=== PATIENT | female | born 1935 | race Caucasian/White ===

== ENCOUNTER 2017-11-12 22:10 | Inpatient (IN) | payer MEDICARE ==
[~2017-11-12] VITALS: Ht 157.5 cm; Wt 42.6 kg
--- NOTE | ~2017-11-12 | PN ---
PATIENT:SENDY PORRAS MEDICAL RECORD: [id number] LOCATION:MILLIE English ADMISSION DATE: 11/12/17 PROGRESS NOTE DATE OF SERVICE: 11/16/2017 SUBJECTIVE: No new complaint is noted. OBJECTIVE: The patient has been very pleasant. She has been exhibiting an unstable heart rate with episodes of significant tachycardia when she attempts to walk. Routine cardiac medications have not been resumed to this point. On exam, the patient's mood is pleasant. Affect is bland. Speech is circumstantial. Content of thought focuses on somatic concerns. Sensorium shows no change. ASSESSMENT: No change in diagnosis. PLAN: 1. Continue current medication. 2. Consult primary care or cardiology regarding unstable heart rate. TRANSINT:[id number] Voice Confirmation ID: [id number] DOCUMENT ID: [id number] EZE HERNANDEZ III, MD at 0837 CC: [id number] DICTATION DATE: 11/16/17 1025 PACKERHEAD MACHINE OPERATOR: 11/16/17 1058 ADM IN [place] [id number] [place] [id number]
--- NOTE | ~2017-11-12 | PN ---
PATIENT:SENDY PORRAS MEDICAL RECORD: [id number] LOCATION:MILLIE English ADMISSION DATE: 11/12/17 PROGRESS NOTE DATE OF SERVICE: 11/15/2017 SUBJECTIVE: The patient asks how she came to the hospital. OBJECTIVE: The patient has cleared somewhat. She is aware that she is in a hospital, but not exactly which one. Staff notes that she is exhibiting some paranoid ideation and that she is quite talkative. On exam, mood is slightly anxious. Affect is shallow. Speech is garrulous. Thought content shows nonspecific paranoid ideation. Sensorium shows essentially no change. She is oriented to person and the fact that she is in a hospital, but has global memory impairment, otherwise. ASSESSMENT: No change in diagnosis. PLAN: 1. Maintain current medication. 2. Continue supportive therapy. TRANSINT:[id number] Voice Confirmation ID: [id number] DOCUMENT ID: [id number] EZE HERNANDEZ III, MD at 0748 CC: [id number] DICTATION DATE: 11/15/17 1145 STUDIO DESIGNER: 11/15/17 1315 ADM IN [facility] [address] [place] [address]
--- NOTE | ~2017-11-12 | PN ---
PATIENT:SENDY PORRAS MEDICAL RECORD: [id number] LOCATION:MILLIE English ADMISSION DATE: 11/12/17 PROGRESS NOTE DATE OF SERVICE: 11/18/2017 SUBJECTIVE: The patient's case was discussed with staff. She has no new complaint. OBJECTIVE: The patient is in good behavioral control with limited insight about her condition. She does tolerate her medicines well. Eye contact is fair. ASSESSMENT: No change in diagnoses. PLAN: Brief supportive and educational interventions were made. I anticipate the patient can be transitioned out of the hospital soon if this level of improvement is maintained. TRANSINT:[id number] Voice Confirmation ID: [id number] DOCUMENT ID: [id number] DENISE MCNAMARA MD at 1034 CC: [id number] DICTATION DATE: 11/18/17 1420 DRUG ROOM OPERATOR: 11/18/17 2219 ADM IN [facility] [address] [place] [id number]
--- NOTE | ~2017-11-12 | PN ---
PATIENT:SENDY PORRAS MEDICAL RECORD: [id number] LOCATION:MILLIE English ADMISSION DATE: 11/12/17 PROGRESS NOTE DATE OF SERVICE: 11/21/2017 SUBJECTIVE: No new complaint. OBJECTIVE: The patient has been doing well. She is much more alert, especially in the mornings. She does get drowsy in the afternoons. No further evidence of psychosis or agitation. [facility] will need to review her case prior to placement. The family is hoping to have her placed somewhere in [facility]. On exam, mood euthymic. Affect bland. Speech is fairly fluent. Content of thought is negative for overt psychosis. Sensorium unchanged. ASSESSMENT: No change in diagnosis. PLAN: 1. Continue current medication. 2. Continue supportive therapy. TRANSINT:[id number] Voice Confirmation ID: [id number] DOCUMENT ID: [id number] EZE HERNANDEZ III, MD at 2046 CC: [id number] DICTATION DATE: 11/21/17 1119 GUEST SERVICES ASSOCIATE: 11/21/17 1232 ADM IN [place] [id number] [place] [id number]
--- NOTE | ~2017-11-12 | CN ---
PATIENT NAME:SENDY PORRAS MEDICAL RECORD: [id number] : 39 LOCATION:[id number] ADMIT DATE: 11/12/17 ACCOUNT: [id number] CONSULTING PHYSICIAN: AMARI DUQUE MD REFERRING PHYSICIAN: EZE HERNANDEZ III, MD DATE OF CONSULTATION: 11/13/2017 CARDIOLOGY CONSULT DIAGNOSES: 1. Bradycardia. 2. Confusion. HISTORY: Mrs. Porras is admitted to [facility] with confusion. This has been going on for quite some time. She has been bradycardic with heart rates in 30-40. She does have a history of atrial fibrillation, for which she is on sotalol. She is as well on digoxin and metoprolol. Her EKG is with sinus bradycardia. PHYSICAL EXAMINATION: GENERAL APPEARANCE: Well-nourished, well-developed, appears stated age. Level of distress, comfortable. PSYCHIATRIC: Mental status, alert, normal affect. Orientation, oriented to time, place and person. EYES: Lids and conjunctiva, noninjected. No discharge, no pallor. ENT: Lips, teeth, gums, normal dentition. Oropharynx, no cyanosis, no pallor. NECK: Carotid arteries, bilateral normal upstroke, no bruits, no thrills. JUGULAR VEINS: No jugular venous pressure or distention. CERVICAL LYMPH NODES: Nontender, nonenlarged. THYROID: Not enlarged. Nontender. No nodules. LUNGS: Respiratory effort, unlabored. CHEST: Normal curvature. No thoracic deformity. No chest wall tenderness. Percussion, resonant. Auscultation, clear. No wheezes, no rales, no rhonchi. CARDIOVASCULAR: Precordial exam, nondisplaced. No heaves or pericardial thrills. Rate and rhythm, regular. Heart sounds, normal S1, normal S2. No S3, no gallop, no rub. Systolic murmur, not heard. Diastolic murmur, not heard. EXTREMITIES: No cyanosis, no edema. Peripheral pulses, full and equal in all extremities, except as noted. No bruits appreciated. ABDOMEN: Soft, nondistended. Normal aorta. No bruit. Nontender. No masses. Liver, nontender, no hepatomegaly. Spleen, nontender, no splenomegaly. MUSCULOSKELETAL: No joint tenderness. No joint swelling. No erythema. NEUROLOGICAL: Normal gait, normal strength, normal tone. SKIN: Warm and dry. OVERALL IMPRESSION: Bradycardia secondary to medication. She is on sotalol, metoprolol, digoxin. We will hold all of her AV blocking medications at this time. Bradycardia will resolve. At this time, no other cardiac workup or treatment is necessary. TRANSINT:[id number] Voice Confirmation ID: [id number] DOCUMENT ID: [id number] CONSULT REPORT [id number] SENDY PORRAS JEFFREY MD at 1230 CC: [id number] DICTATION DATE: 11/13/17 1253 AUDIOPROSTHOLOGIST: 11/13/17 1305 ADM IN [facility] [address] [place] [id number]
--- NOTE | ~2017-11-12 | PN ---
PATIENT:SENDY PORRAS MEDICAL RECORD: [id number] LOCATION:MILLIE English ADMISSION DATE: 11/12/17 PROGRESS NOTE DATE OF SERVICE: 11/14/2017 SUBJECTIVE: The patient expresses concern about medication. OBJECTIVE: The patient was seen in consultation by cardiology yesterday following the order to have her transferred to the medical floor. web consultant was of the opinion that the patient's bradycardia and compromised cardiovascular status were due to medication reaction and that in fact the patient should stabilize here on this unit. Consequently, the request for discharge was canceled and the patient remains an inpatient on [facility]. On exam today, the patient's mood remains anxious. Affect is brittle. Speech tends to be somewhat tangential. Content of thought is focused primarily on her somatic complaints. On sensorium testing, the patient is oriented to person and the fact that she is in the hospital, not oriented as to time. She shows global memory impairment. ASSESSMENT: Alzheimer dementia. PLAN: 1. We will continue to treat only with p.r.n. lorazepam for agitation. 2. Continue workup by primary care. 3. Continue supportive therapy. TRANSINT:[id number] Voice Confirmation ID: [id number] DOCUMENT ID: [id number] EZE HERNANDEZ III, MD at 0934 CC: [id number] DICTATION DATE: 11/14/17 1134 RESEARCH NUTRITIONIST: 11/14/17 1151 ADM IN [facility] [address] [place] [address]
--- NOTE | ~2017-11-12 | PN ---
PATIENT:SENDY PORRAS MEDICAL RECORD: [id number] LOCATION:MILLIE English ADMISSION DATE: 11/12/17 PROGRESS NOTE DATE OF SERVICE: 11/19/2017 SUBJECTIVE: The patient's case was discussed with staff. She has no new complaints. OBJECTIVE: The patient is in good behavioral control with limited insight about her condition. She tolerates her medicines well. ASSESSMENT: No change in diagnoses. PLAN: Current medicines and therapies have been reviewed. I anticipate she can be transitioned out of the hospital soon if this level of improvement is maintained. TRANSINT:[id number] Voice Confirmation ID: [id number] DOCUMENT ID: [id number] DENISE MCNAMARA MD at 1354 CC: [id number] DICTATION DATE: 11/19/17 1109 FILER FINISH: 11/19/17 1343 ADM IN [facility] [address] [place] [address]
--- NOTE | ~2017-11-12 | DS ---
PATIENT:SENDY PORRAS :39 MEDICAL RECORD: [id number] DISCHARGE SUMMARY ADMISSION DATE: 11/12/17 DISCHARGE DATE: DATE OF ADMISSION: 11/12/2017 DATE OF DISCHARGE: 11/13/2017 HISTORY: The patient was just admitted on transfer from [facility]. The patient had previous history of confusion dating back at least 3 years. She had been living alone. She had gone to a neighbor's house and was exhibiting extreme confusion and agitation and was subsequently brought to the Emergency Department at [facility]. Following transfer here, it was clear that she was exhibiting a compromised cardiovascular status. Oxygen saturation was 83%, pulse rate was 39. The patient did not show significant improvement and will be transferred to the medical floor. COURSE IN THE HOSPITAL: See above. FINAL DIAGNOSES: AXIS I: Alzheimer's dementia most likely. AXIS II: No diagnosis. AXIS III: Cardiac arrhythmias, hypertension, hypercholesterolemia. AXIS IV: Severe. AXIS V: 20. PLAN: The patient will be transferred to the medical floor as soon as possible. TRANSINT:[id number] Voice Confirmation ID: [id number] DOCUMENT ID: [id number] EZE HERNANDEZ III, MD at 1021 CC: [id number] DICTATION DATE: 11/13/17 1024 WILLOWER: 11/13/17 1353 ADM IN [place] [id number] [place] [address]
--- NOTE | ~2017-11-12 | PN ---
PATIENT:SENDY PORRAS MEDICAL RECORD: [id number] LOCATION:MILLIE English ADMISSION DATE: 11/12/17 PROGRESS NOTE DATE OF SERVICE: 11/20/2017 SUBJECTIVE: No new complaint offered. OBJECTIVE: The patient has shown tremendous improvement. Her cardiac status has stabilized. She is now in normal sinus rhythm. She is eating well and much more alert. On exam, mood is euthymic. Affect is very pleasant. Speech is somewhat terse, but otherwise fluent. Content of thought is negative for overt psychosis. Sensorium shows no change. ASSESSMENT: No change in diagnosis. PLAN: 1. Continue current medication. 2. Continue supportive therapy. TRANSINT:[id number] Voice Confirmation ID: [id number] DOCUMENT ID: [id number] EZE HERNANDEZ III, MD at 1026 CC: [id number] DICTATION DATE: 11/20/17921 BOX TOE CUTTER: 11/20/17 1124 ADM IN [place] [id number] [place] [address]
--- NOTE | ~2017-11-12 | PSY ---
PATIENT NAME:SENDY PORRAS MEDICAL RECORD: [id number] : 39 LOCATION:MILLIE Sheehan ADMISSION DATE: 11/12/17 ACCOUNT: [id number] PSYCHIATRIC EVALUATION DATE OF EVALUATION: 11/13/17 IDENTIFYING DATA: A 81-year-old white female accepted on transfer from [facility] Emergency Department. HISTORY OF PRESENT ILLNESS: This patient was taken to [facility] after she had become quite confused. She had gone to a neighbor's home and would not leave. She became increasingly agitated. Granddaughter reported on admission here that the patient had been becoming increasingly confused over the last 3 years. The patient lives alone. After admission here, it was clear that the patient was having significant cardiac issues. Oxygen saturation was at 83%, pulse rate was 39. The patient has continued to exhibit bradycardia since admission. In view of her compromise cardiac status, she will be transferred to the medical floor. PAST MEDICAL HISTORY: Significant for cardiac arrhythmias. The patient is currently taking Betapace 80 mg b.i.d. as well as Lopressor 50 mg b.i.d. for hypertension, Lasix 20 mg daily, and K-Dur 20 mEq daily. She also takes Pravachol 40 mg h.s. ALLERGIES: Listed as CODEINE, LESCOL, LIPITOR. FAMILY HISTORY: Noncontributory. SOCIAL HISTORY: The patient lives alone. She has family involved in her care. No substance abuse issues noted. MENTAL STATUS: The patient cannot cooperate at all for mental status exam. She is very poorly responsive. Sensorium cannot be tested. ASSESSMENT: AXIS I: Probable Alzheimer dementia by history. AXIS II: No diagnosis. AXIS III: cardiac arrhythmias, hypertension, and hypercholesterolemia. AXIS IV: Severe. AXIS V: 20. PLAN: The patient will be transferred to the medical floor as soon as possible. TRANSINT:[id number] Voice Confirmation ID: [id number] DOCUMENT ID: [id number] EZE HERNANDEZ III, MD at 1021 CC: [id number] DICTATION DATE: 11/13/17 1022 STATE ASSESSED PROPERTIES DIRECTOR: 11/13/17 1039 ADM IN [place] [id number] [place] [address]
--- NOTE | ~2017-11-12 | DS ---
PATIENT:SENDY PORRAS :39 MEDICAL RECORD: [id number] DISCHARGE SUMMARY ADMISSION DATE: 11/12/17 DISCHARGE DATE: 11/21/17 DATE OF ADMISSION: 11/12/2017 DATE OF DISCHARGE: 11/21/2017 HISTORY OF PRESENT ILLNESS: A 81-year-old white female who was transferred from [facility]. The patient had become acutely confused and agitated and had gone to a neighbor's home. The neighbor became alarmed and had the patient taken to [facility]. The patient exhibited extreme confusion while there and was transferred to [facility]. Upon admission, the patient showed significant bradycardia. Consultation with cardiology was quickly requested. The patient did stabilize the next day. The patient had a previous history of dementia. For further details, please see previously dictated history. COURSE IN THE HOSPITAL: The patient was followed by Dr. Luciana Howell MD, for medical care. Dr. Howell, of course, noted the presence of chronic cardiac arrhythmias. The patient had a medication-induced bradycardia upon initial evaluation with this resolved. The patient also has a history of hypertension and paroxysmal atrial fibrillation. As mentioned, cardiology was involved in the patient's care. She did stabilize initially. From a psychiatric standpoint, she was managed extremely conservatively. She was given only p.r.n. Ativan for control of agitation and did quite well on this. Otherwise, she was maintained on digoxin 0.125 mg twice a day, Betapace 80 mg twice a day, vitamin D supplements, and Pravachol as well as Megace. On the day of transfer, however, the patient began to show critical lab changes. She had a markedly decreased oxygen saturation. She began to show poor responsiveness. Primary care intervened and ordered transfer to the intensive care unit. FINAL DIAGNOSES: AXIS I: Alzheimer dementia by history. AXIS II: No diagnosis. AXIS III: Cardiac arrhythmias, hypertension, hypercholesterolemia, vitamin D deficiency. AXIS IV: Severe. AXIS V: 36. PLAN: The patient is now transferred to ICU under the care of primary care physician. TRANSINT:[id number] Voice Confirmation ID: [id number] DOCUMENT ID: [id number] DISCHARGE SUMMARY REPORT [id number] VERNSENDY HERNANDEZ III, EZE Urbina MD at 1108 CC: [id number] DICTATION DATE: 11/21/172056 PROCESSOR SOLID PROPELLANT: 11/21/172114 DIS IN 11/21/17 [facility] [address] [facility]
--- NOTE | ~2017-11-12 | PN ---
PATIENT:SENDY PORRAS MEDICAL RECORD: [id number] LOCATION:MILLIE English ADMISSION DATE: 11/12/17 PROGRESS NOTE DATE OF SERVICE: 11/17/2017 SUBJECTIVE: The patient's case was discussed with staff. She has no new complaint. OBJECTIVE: The patient is in good behavioral control with limited insight about her condition. She tolerates her medicines well. ASSESSMENT: No change in diagnoses. PLAN: Supportive and educational interventions were made. Long-term prognosis is guarded. I anticipate the patient can be transitioned out of the hospital soon. We are awaiting approval from the office of long-term care. TRANSINT:[id number] Voice Confirmation ID: [id number] DOCUMENT ID: [id number] DENISE MCNAMARA MD at 1008 CC: [id number] DICTATION DATE: 11/17/17 1524 LOWER SCHOOL MUSIC TEACHER: 11/17/17 1547 ADM IN [facility] [address] [place] [address]
[2017-11-12 23:00] VITALS: BP 119/86
[2017-11-12] MEDS ORDERED: BETAPACE 80 MG80 MG PO (23:48)
[2017-11-12] MEDS ORDERED: FUROSEMIDE20 MG PO (23:48)
[2017-11-12] MEDS ORDERED: K-DUR20 MEQ PO (23:49)
[2017-11-12] MEDS ORDERED: PRAVACHOL40 MG PO (23:49)
[2017-11-12] MEDS ORDERED: LANOXIN250 MCG PO (23:50)
[2017-11-12] MEDS ORDERED: METOPROLOL TART50 MG PO (23:51)
[2017-11-13 05:46] VITALS: BP 119/86
[2017-11-13 06:29] LABS: BASOPHILS 0.2 % (0-2); EOSINOPHILS 0.4 % (0-7); HEMATOCRIT 41.9 % (36.0-48.0); HEMOGLOBIN 13.5 g/dL (12-16); IMMATURE GRANULOCYTES 0.2 % (0-5); LYMPHOCYTES 18.4 % (15-50); MCHC 32.2 g/dL (31.0-37.0); MCV 96.1 fL (80.0-100.0); MEAN PLATELET VOLUME 10.5 fL (7.4-10.4); MONOCYTES 8.6 % (2-11); NEUTROPHILS 72.2 % (40-80); PLATELET COUNT 149 10x3/uL (130-400); RBC 4.36 10x6/uL (4.00-5.40); WBC 4.9 10x3/uL (4.8-10.8)
[2017-11-13 07:00] VITALS: BP 122/54
[2017-11-13 07:14] LABS: ALBUMIN 3.2 g/dL (3.4-5.0); ALKALINE PHOSPHATASE 59 U/L (46-116); ALT (SGPT) 22 U/L (10-68); BILIRUBIN - TOTAL 0.35 mg/dL (0.2-1.3); CALC OSMOLALITY 287 mosm/kg (275-300); CALCIUM 9.6 mg/dL (8.5-10.1); CARBON DIOXIDE 39.7 mmol/L (21.0-32.0); CHLORIDE - SERUM 101 mmol/L (98-107); CHOL - HDL RATIO 2.2 ratio (2.3-4.1); CHOLESTEROL, TOTAL 149 mg/dL (0-200); CREATININE - SERUM 0.5 mg/dL (0.6-1.3); GLUCOSE 122 mg/dL (74-106); HDL CHOLESTEROL 67 mg/dL (32-96); LDL CHOLESTEROL 69 mg/dL (0-100); POTASSIUM - SERUM 3.7 mmol/L (3.5-5.1); PROTEIN - SERUM 5.9 g/dL (6.4-8.2); SODIUM 142 mmol/L (136-145); THYROID STIMULATING HORMONE 1.21 uIU/mL (0.36-3.74); TRIGLYCERIDE 67 mg/dL (30-200); UREA NITROGEN 24 mg/dL (7-18); eGFR NON AFRICAN AMERICAN > 90 mL/min (90-120)
[2017-11-13 07:15] LABS: DIGOXIN < 0.20 ng/mL (0.90-2.00)
[2017-11-13 20:58] VITALS: BP 101/45
[2017-11-14 05:37] LABS: APPEARANCE CLEAR (CLEAR); BILIRUBIN NEGATIVE (NEGATIVE); COLOR YELLOW (YELLOW); GLUCOSE NEGATIVE (NEGATIVE); KETONE NEGATIVE (NEGATIVE); NITRITE NEGATIVE (NEGATIVE); PROTEIN NEGATIVE (NEGATIVE); UROBILINOGEN NORMAL (NORMAL)
[2017-11-14 05:38] LABS: BACTERIA FEW /hpf (NONE SEEN); EPITHELIAL CELLS 0-5 /hpf (0-5); RED CELLS - URINE 0-5 /hpf (0-5); WHITE CELLS - URINE 0-5 /hpf (0-5)
[2017-11-14 09:12] LABS: VITAMIN D 25 HYDROXY 12.9 ng/mL (30.0-100.0)
[2017-11-14 10:14] LABS: FOLATE (FOLIC ACID) - SERUM 10.1 ng/mL (>3.0)
[2017-11-14 10:25] VITALS: BP 90/44
[2017-11-14 12:35] VITALS: BMI 16.8
[2017-11-14 19:36] VITALS: BP 112/58
[2017-11-14 20:06] LABS: RAPID PLASMA REAGIN Non Reactive (Non Reactive)
[2017-11-15 10:56] VITALS: BP 111/58
[2017-11-15 20:25] VITALS: BP 128/68
[2017-11-16 09:45] VITALS: BP 185/71
[2017-11-16 19:56] VITALS: BP 150/66
[2017-11-17 09:42] VITALS: BP 146/65
[2017-11-17 19:39] VITALS: BP 108/51
[2017-11-18 09:56] VITALS: BP 137/57
[2017-11-18 20:00] VITALS: BP 115/57
[2017-11-19 10:13] VITALS: BP 129/69
[2017-11-19 20:41] VITALS: BP 135/57
[2017-11-20 08:00] VITALS: BP 112/60
[2017-11-20 21:06] VITALS: BP 102/48
[2017-11-21 08:02] VITALS: BMI 16.6
[2017-11-21 08:12] VITALS: BP 121/56
[2017-11-21 19:18] LABS: CALCIUM 10.1 mg/dL (8.5-10.1); CHLORIDE - SERUM 98 mmol/L (98-107); CREATININE - SERUM 0.5 mg/dL (0.6-1.3); DIGOXIN 0.85 ng/mL (0.90-2.00); POTASSIUM - SERUM 4.9 mmol/L (3.5-5.1); SODIUM 141 mmol/L (136-145); UREA NITROGEN 23 mg/dL (7-18); eGFR NON AFRICAN AMERICAN > 90 mL/min (90-120)
[2017-11-21 19:20] LABS: CALC OSMOLALITY 290 mosm/kg (275-300); GLUCOSE 210 mg/dL (74-106)
[2017-11-21 19:24] LABS: CARBON DIOXIDE 48.6 mmol/L (21.0-32.0)
[2017-11-21 20:02] LABS: BASOPHILS 0.2 % (0-2); EOSINOPHILS 0.7 % (0-7); HEMATOCRIT 47.4 % (36.0-48.0); IMMATURE GRANULOCYTES 0.2 % (0-5); LYMPHOCYTES 10.8 % (15-50); MCH 32.1 pg (26.0-34.0); MCHC 31.6 g/dL (31.0-37.0); MCV 101.3 fL (80.0-100.0); MEAN PLATELET VOLUME 10.5 fL (7.4-10.4); NEUTROPHILS 79.1 % (40-80); RBC 4.68 10x6/uL (4.00-5.40); RDW 14.4 % (11.5-14.5); WBC 5.4 10x3/uL (4.8-10.8)
[2017-11-21 20:26] LABS: PLATELET COUNT 206 10x3/uL (130-400)
[2017-11-21 20:41] VITALS: BP 145/57
[2017-11-21 22:57] VITALS: BP 121/68; Ht 157.5 cm; Wt 42.6 kg
[2017-11-22 02:34] VITALS: BP 121/68
[2017-11-22 05:57] LABS: BASOPHILS 0.1 % (0-2); EOSINOPHILS 0.3 % (0-7); HEMATOCRIT 45.5 % (36.0-48.0); HEMOGLOBIN 14.3 g/dL (12-16); IMMATURE GRANULOCYTES 0.3 % (0-5); LYMPHOCYTES 8.4 % (15-50); MCH 31.6 pg (26.0-34.0); MCHC 31.4 g/dL (31.0-37.0); MCV 100.4 fL (80.0-100.0); MEAN PLATELET VOLUME 10.3 fL (7.4-10.4); MONOCYTES 2.5 % (2-11); NEUTROPHILS 88.4 % (40-80); PLATELET COUNT 198 10x3/uL (130-400); RBC 4.53 10x6/uL (4.00-5.40); RDW 14.3 % (11.5-14.5)
[2017-11-22 05:59] LABS: CALCIUM 9.4 mg/dL (8.5-10.1); CHLORIDE - SERUM 100 mmol/L (98-107); CREATININE - SERUM 0.4 mg/dL (0.6-1.3); POTASSIUM - SERUM 4.4 mmol/L (3.5-5.1); SODIUM 140 mmol/L (136-145); UREA NITROGEN 24 mg/dL (7-18); eGFR NON AFRICAN AMERICAN > 90 mL/min (90-120)
[2017-11-22 06:00] LABS: CALC OSMOLALITY 282 mosm/kg (275-300); CARBON DIOXIDE 42.6 mmol/L (21.0-32.0); GLUCOSE 106 mg/dL (74-106)
[2017-11-22 06:06] LABS: WBC 6.9 10x3/uL (4.8-10.8)
[2017-11-25 04:43] LABS: BASOPHILS 0 % (0-2); EOSINOPHILS 0 % (0-7); HEMATOCRIT 42.8 % (36.0-48.0); HEMOGLOBIN 13.8 g/dL (12-16); IMMATURE GRANULOCYTES 0.2 % (0-5); LYMPHOCYTES 2.3 % (15-50); MCH 31.5 pg (26.0-34.0); MCHC 32.2 g/dL (31.0-37.0); MCV 97.7 fL (80.0-100.0); MEAN PLATELET VOLUME 10.2 fL (7.4-10.4); MONOCYTES 4.7 % (2-11); NEUTROPHILS 92.8 % (40-80); PLATELET COUNT 241 10x3/uL (130-400); RBC 4.38 10x6/uL (4.00-5.40); RDW 14.4 % (11.5-14.5); WBC 9.6 10x3/uL (4.8-10.8)
[2017-11-25 04:51] LABS: CALC OSMOLALITY 285 mosm/kg (275-300); CALCIUM 9.7 mg/dL (8.5-10.1); CHLORIDE - SERUM 106 mmol/L (98-107); CREATININE - SERUM 0.4 mg/dL (0.6-1.3); GLUCOSE 168 mg/dL (74-106); POTASSIUM - SERUM 3.9 mmol/L (3.5-5.1); SODIUM 138 mmol/L (136-145); UREA NITROGEN 30 mg/dL (7-18); eGFR NON AFRICAN AMERICAN > 90 mL/min (90-120)
== END 2017-11-21 21:28 | disposition short-term general hospital (02) | DRG 57 ==
LOC: D.PSYCH 22:10 → D.ICU 22:28 → D.PSYCH 22:28 → D.ICU 11-21 21:28 → D.PSYCH 11-21 21:28 → D.ICU 11-21 21:34
PROVIDERS: Family Medicine; Internal Medicine Pulmonary Disease; Psychiatry & Neurology Psychiatry
DX: G30.9 Alzheimer's disease, unspecified (principal); I50.32 Chronic diastolic (congestive) heart failure; Z68.1 Body mass index [BMI] 19.9 or less, adult; F02.80 Dementia in other diseases classified elsewhere, unspecified severity, without behavioral disturbance, psychotic disturbance, mood disturbance, and anxiety; I11.0 Hypertensive heart disease with heart failure; R00.1 Bradycardia, unspecified; T50.995A Adverse effect of other drugs, medicaments and biological substances, initial encounter; E86.0 Dehydration; E55.9 Vitamin D deficiency, unspecified; E78.5 Hyperlipidemia, unspecified; R63.6 Underweight; I48.0 Paroxysmal atrial fibrillation; R00.0 Tachycardia, unspecified; E78.00 Pure hypercholesterolemia, unspecified

== ENCOUNTER 2017-11-21 21:28 | Inpatient (IN) | payer MEDICARE ==
[~2017-11-21] VITALS: Ht 157.5 cm; Wt 46.0 kg
[2017-11-21] VITALS (8 sets, daily range): BP systolic 111–143; BP diastolic 40–93
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
--- NOTE | ~2017-11-21 | CN ---
PATIENT NAME:SENDY PORRAS MEDICAL RECORD: [id number] : 39 LOCATION:[id number] ADMIT DATE: 11/21/17 ACCOUNT: [id number] CONSULTING PHYSICIAN: HANNY DENNIS MD REFERRING PHYSICIAN: LUCIANA CAPPS MD DATE OF CONSULTATION: 11/22/2017 CONSULT REQUESTING PHYSICIAN: Luciana Capps MD REASON FOR CONSULTATION: Ugrwi-fi-hyhturr hypoxic hypercapnic respiratory failure, mental status changes. HISTORY OF PRESENT ILLNESS: Ms. Porras is a 81-year-old female who was admitted to the ICU with mental status changes, more sleepy and lethargic. ABG was done, which showed pH last night of 7.36, pCO2 was 70s, and bicarb was about 42-43. The patient was started on BiPAP last night. Now, she is awake and alert, but the patient is still confused and lethargic. REVIEW OF THE SYSTEMS: As in history of present illness. PAST MEDICAL HISTORY: 1. COPD. 2. Chronic hypoxic respiratory failure. 3. History of dementia. 4. Atrial fibrillation. 5. Hypertension. 6. History of rheumatic fever. 7. Hyperlipidemia. 8. Dementia. PAST SURGICAL HISTORY: Bilateral breast augmentation surgery. ALLERGIES: SHE IS ALLERGIC TO ATORVASTATIN, CODEINE, LESCOL, AND CRESTOR. MEDICATIONS: Abyz was reviewed. PERSONAL AND SOCIAL HISTORY: The patient is an ex-smoker. FAMILY HISTORY: Noncontributory. PHYSICAL EXAMINATION: GENERAL: Now, the patient is lying comfortably in bed. She is not in acute distress. The patient is awake and alert, but she is confused. VITAL SIGNS: The blood pressure is 112/77, pulse is 64, respiration is 19, temperature is 98.2, SpO2 is 97% on 30% BiPAP. HEENT: Conjunctivae are pink. Sclerae are not icteric. NECK: Neck is supple. No JVD. CHEST: The chest excursion is minimal on both sides. There is no wheeze and no rales. HEART: Rhythm regular. Normal sound. No murmur. ABDOMEN: Abdomen is soft. Bowel sounds present. No hepatosplenomegaly. RECTAL: Deferred. EXTREMITIES: No cyanosis. No clubbing. There is no pedal edema. SKIN: The skin is warm. Normal turgor. CENTRAL NERVOUS SYSTEM: The patient is awake and alert. There are no obvious CONSULT REPORT [id number] SENDY PORRAS S cranial nerve abnormalities. The gait was not tested. LABORATORY DATA: CBC; WBC is 6.9, hemoglobin 14.3, hematocrit is 45.5, and platelet count is 198. The repeat ABG; pH is 7.26, pCO2 is 92.6, pO2 is 103, bicarb is 45.1. IMPRESSION: 1. Msqgx-sv-oisufbd hypoxic hypercapnic respiratory failure. 2. Aghpm-sx-bayytln mental status changes, most likely secondary to metabolic encephalopathy secondary to CO2 narcosis. 3. Respiratory acidosis with noncompensated metabolic alkalosis. 4. Acute exacerbation of COPD. 5. Possible UTI. RECOMMENDATION: 1. Start on albuterol/ipratropium nebulizer. 2. Brovana and budesonide nebulizer. 3. Methylprednisolone IV. 4. Empiric Rocephin IV. 5. Diamox 250 mg q. 8 hourly. 6. Followup labs and chest radiograph. Check the ammonia level. I discussed with Dr. Capps. Thank you for involving me in the care of Ms. Porras. TRANSINT:[id number] Voice Confirmation ID: [id number] DOCUMENT ID: [id number] HANNY DENNIS MD at 1110 CC: [id number] DICTATION DATE: 11/22/17 1415 POT FIREMAN: 11/22/17 1452 ADM IN [place] [id number] [place] [address]
[~2017-11-21 21:28] MED LIST: BETAPACE 80 MG80 MG PO; FUROSEMIDE20 MG PO; K-DUR20 MEQ PO; LANOXIN250 MCG PO; METOPROLOL TART50 MG PO; PRAVACHOL40 MG PO
[2017-11-22] VITALS (25 sets, daily range): BP systolic 102–126; BP diastolic 49–77; BMI 17.2; BMI 17.1
[2017-11-23] VITALS (23 sets, daily range): BP systolic 98–129; BP diastolic 49–70; Ht 157.5 cm; Wt 46.0 kg
[2017-11-23 03:22] LABS: BASOPHILS 0 % (0-2); EOSINOPHILS 0 % (0-7); HEMATOCRIT 43.5 % (36.0-48.0); HEMOGLOBIN 13.8 g/dL (12-16); IMMATURE GRANULOCYTES 0.2 % (0-5); LYMPHOCYTES 5.5 % (15-50); MCH 31.2 pg (26.0-34.0); MCHC 31.7 g/dL (31.0-37.0); MCV 98.4 fL (80.0-100.0); MEAN PLATELET VOLUME 10.3 fL (7.4-10.4); MONOCYTES 0.8 % (2-11); NEUTROPHILS 93.5 % (40-80); PLATELET COUNT 239 10x3/uL (130-400); RBC 4.42 10x6/uL (4.00-5.40); RDW 14.2 % (11.5-14.5); WBC 6.5 10x3/uL (4.8-10.8)
[2017-11-23 03:45] LABS: ALBUMIN 2.9 g/dL (3.4-5.0); ALKALINE PHOSPHATASE 65 U/L (46-116); ALT (SGPT) 17 U/L (10-68); BILIRUBIN - TOTAL 0.21 mg/dL (0.2-1.3); CALC OSMOLALITY 289 mosm/kg (275-300); CALCIUM 9.3 mg/dL (8.5-10.1); CHLORIDE - SERUM 105 mmol/L (98-107); CREATININE - SERUM 0.5 mg/dL (0.6-1.3); GLUCOSE 146 mg/dL (74-106); PROTEIN - SERUM 5.9 g/dL (6.4-8.2); SODIUM 142 mmol/L (136-145); UREA NITROGEN 25 mg/dL (7-18); eGFR NON AFRICAN AMERICAN > 90 mL/min (90-120)
[2017-11-24] VITALS (26 sets, daily range): BP systolic 92–128; BP diastolic 49–72
[2017-11-25] VITALS (23 sets, daily range): BP systolic 100–140; BP diastolic 51–94
[2017-11-25] MEDS ORDERED: MEGACE ES625 MG/5 M PO (02:33)
[2017-11-25] MEDS ORDERED: VITAMIN D5000 UNIT PO (02:34)
[2017-11-25] MEDS ORDERED: LANOXIN125 MCG PO (02:35)
[2017-11-25] MEDS ORDERED: BETAPACE 80 MG80 MG PO (02:36)
[2017-11-25] MEDS ORDERED: ATIVAN0.5 MG PO (02:37)
[2017-11-25] MEDS ORDERED: ATIVAN2 MG/ML IM (02:39)
[2017-11-25 08:21] LABS: BASOPHILS 0 % (0-2); EOSINOPHILS 0 % (0-7); HEMATOCRIT 42.7 % (36.0-48.0); IMMATURE GRANULOCYTES 0.1 % (0-5); MCHC 32.8 g/dL (31.0-37.0); MCV 97.5 fL (80.0-100.0); MONOCYTES 7.4 % (2-11); NEUTROPHILS 89.5 % (40-80); PLATELET COUNT 244 10x3/uL (130-400); RBC 4.38 10x6/uL (4.00-5.40); RDW 14.4 % (11.5-14.5)
[2017-11-26] VITALS (22 sets, daily range): BP systolic 112–150; BP diastolic 56–85
[2017-11-26 03:02] LABS: BASOPHILS 0 % (0-2); EOSINOPHILS 0 % (0-7); HEMOGLOBIN 13.7 g/dL (12-16); IMMATURE GRANULOCYTES 0.1 % (0-5); LYMPHOCYTES 3.9 % (15-50); MCH 31.5 pg (26.0-34.0); MCHC 32.6 g/dL (31.0-37.0); MCV 96.6 fL (80.0-100.0); MEAN PLATELET VOLUME 10.4 fL (7.4-10.4); MONOCYTES 1.7 % (2-11); NEUTROPHILS 94.3 % (40-80); PLATELET COUNT 231 10x3/uL (130-400); RBC 4.35 10x6/uL (4.00-5.40); RDW 14.2 % (11.5-14.5); WBC 9.5 10x3/uL (4.8-10.8)
[2017-11-27] VITALS (7 sets, daily range): BP systolic 118–140; BP diastolic 61–77
[2017-11-27 03:55] LABS: BASOPHILS 0 % (0-2); EOSINOPHILS 0 % (0-7); HEMATOCRIT 40.2 % (36.0-48.0); HEMOGLOBIN 13.4 g/dL (12-16); IMMATURE GRANULOCYTES 0.2 % (0-5); LYMPHOCYTES 3.5 % (15-50); MCH 31.5 pg (26.0-34.0); MCHC 33.3 g/dL (31.0-37.0); MEAN PLATELET VOLUME 10.3 fL (7.4-10.4); MONOCYTES 3.5 % (2-11); NEUTROPHILS 92.8 % (40-80); PLATELET COUNT 228 10x3/uL (130-400); RBC 4.25 10x6/uL (4.00-5.40); RDW 14.4 % (11.5-14.5); WBC 9.1 10x3/uL (4.8-10.8)
[2017-11-27 04:02] LABS: MCV 94.6 fL (80.0-100.0)
[2017-11-27 04:09] LABS: CALC OSMOLALITY 288 mosm/kg (275-300); CALCIUM 8.9 mg/dL (8.5-10.1); CARBON DIOXIDE 34.4 mmol/L (21.0-32.0); CHLORIDE - SERUM 105 mmol/L (98-107); CREATININE - SERUM 0.4 mg/dL (0.6-1.3); GLUCOSE 134 mg/dL (74-106); POTASSIUM - SERUM 4.2 mmol/L (3.5-5.1); SODIUM 141 mmol/L (136-145); UREA NITROGEN 28 mg/dL (7-18); eGFR NON AFRICAN AMERICAN > 90 mL/min (90-120)
[2017-11-28] VITALS: BP 119/65
[2017-11-28 04:00] VITALS: BP 138/81
[2017-11-28 06:04] LABS: BASOPHILS 0 % (0-2); EOSINOPHILS 0.1 % (0-7); HEMOGLOBIN 13.5 g/dL (12-16); IMMATURE GRANULOCYTES 0.3 % (0-5); LYMPHOCYTES 5.8 % (15-50); MCH 31.7 pg (26.0-34.0); MCHC 33.8 g/dL (31.0-37.0); MCV 93.9 fL (80.0-100.0); MEAN PLATELET VOLUME 10.4 fL (7.4-10.4); MONOCYTES 8.6 % (2-11); NEUTROPHILS 85.2 % (40-80); PLATELET COUNT 240 10x3/uL (130-400); RBC 4.26 10x6/uL (4.00-5.40); RDW 14.1 % (11.5-14.5); WBC 9.9 10x3/uL (4.8-10.8)
[2017-11-28 06:13] LABS: CALC OSMOLALITY 286 mosm/kg (275-300); CALCIUM 9.3 mg/dL (8.5-10.1); CHLORIDE - SERUM 106 mmol/L (98-107); CREATININE - SERUM 0.5 mg/dL (0.6-1.3); GLUCOSE 115 mg/dL (74-106); MAGNESIUM - SERUM 2.2 mg/dL (1.8-2.4); POTASSIUM - SERUM 4.6 mmol/L (3.5-5.1); SODIUM 141 mmol/L (136-145); UREA NITROGEN 26 mg/dL (7-18); eGFR NON AFRICAN AMERICAN > 90 mL/min (90-120)
[2017-11-28 06:18] LABS: PHOSPHOROUS 1.5 mg/dL (2.5-4.9)
[2017-11-28 08:29] VITALS: BP 151/67
[2017-11-28 12:04] VITALS: BP 131/64
[2017-11-28 15:30] VITALS: BP 139/67
== END 2017-11-28 21:30 | DRG 189 ==
LOC: D.M2 21:28 → D.ICU 21:28 → D.M2 11-27 21:56
PROVIDERS: Family Medicine; Internal Medicine Pulmonary Disease
PROC: 5A09357 Assistance with Respiratory Ventilation, Less than 24 Consecutive Hours, Continuous Positive Airway Pressure (ICD-10-PCS; principal; 2017-11-22)
DX: J96.21 Acute and chronic respiratory failure with hypoxia (principal); G93.41 Metabolic encephalopathy; J18.9 Pneumonia, unspecified organism; F02.81 Dementia in other diseases classified elsewhere, unspecified severity, with behavioral disturbance; E87.4 Mixed disorder of acid-base balance; N39.0 Urinary tract infection, site not specified; J81.1 Chronic pulmonary edema; J44.1 Chronic obstructive pulmonary disease with (acute) exacerbation; J96.22 Acute and chronic respiratory failure with hypercapnia; G30.9 Alzheimer's disease, unspecified; I11.0 Hypertensive heart disease with heart failure; I50.9 Heart failure, unspecified; E78.5 Hyperlipidemia, unspecified; E56.9 Vitamin deficiency, unspecified; R00.1 Bradycardia, unspecified; T50.905A Adverse effect of unspecified drugs, medicaments and biological substances, initial encounter